=== PATIENT | female | born 1970 | race Caucasian/White ===

== ENCOUNTER → 2020-04-26 11:16 | Outpatient (CLI) | payer BC, SELFPAY ==
[2020-04-27 11:13] LABS: Covid-19 Nasal PCR Sendout P&C NEGATIVE
== END ==
PROVIDERS: PCP Family Medicine; Visit Provider Nurse Practitioner Family
DX: Z20.822 Contact with and (suspected) exposure to COVID-19 (principal)
CPT/HCPCS: U0004

== ENCOUNTER 2022-09-26 11:36 | Emergency (ER) | payer BC, SELFPAY ==
[2022-09-26 11:40] VITALS: BP 119/86; PULSE 78; RESP 18; TEMP 36.7; O2SAT 99; BMI 32.8
--- NOTE | 2022-09-26 12:00 | EXP.UTC ---
Discharge Plan Disposition Patient Disposition: Home, Self-Care Condition: Good Prescriptions Prescriptions: New fluticasone propionate [Flonase Allergy Relief] 50 mcg/actuation spray,suspension 2 spray intranasal DAILY Qty: 16 0RF Rx Instructions: administer into each nostril daily methylprednisolone [Medrol (Paulo)] 4 mg tablets,dose pack See Rx Instructions .Route .COMPLEX 6 Days Qty: 21 0RF Rx Instructions: taper pack; No Action levothyroxine 125 mcg tablet 125 mcg PO DAILY 90 Days Qty: 90 Label Comments: Referrals Follow up/Referrals: Patricia May APRN [Primary Care Provider] - See instructions Activity Restrictions/Add. Instructions Additional Instructions/Restrictions: *Monitor Temp, Over the counter Motrin or Tylenol as directed/as needed Tylenol every 4 hours and Motrin every 6 hours (as long as your family doctor has told you that you can take it) for fever or pain. and straight to ER if unable to lower temp less than 101.0 after medication given Take medication as prescribed *Humidifier/Vaporizer *Flonase 2 sprays in each nostril daily but be aware that it may take 2-3 days before you notice improvement Follow up IMMEDIATELY for new or worsening symptoms or no Noticeable improvement over the next 48-72 hours. 911 for difficulty breathing or swallowing Clinical Impressions Clinical Impression: Allergic rhinitis Qualifiers: Allergic rhinitis trigger: unspecified Allergic rhinitis seasonality: unspecified Qualified Code(s): J30.9 - Allergic rhinitis, unspecified Instructions Patient Instructions: Allergic Rhinitis, DI for Allergic Rhinitis Discharge ED Provider: Johanne Burkett [facility] [place] General Stated complaint: right ear pain Mode of Arrival: Ambulatory Source of Information: Patient Limitations: No Limitations Time Seen by Provider: 09/26/22 12:00 Description of Symptoms (Recalled from Triage Doc. by RN): PATIENT STATES THAT HER RIGHT EAR FEELS CLOGGED SINCE THIS MORNING HEENT Symptoms (Recalled from RN notes): Yes Resp Symptoms (Recalled from RN notes): No Skin Symptoms (Recalled from RN notes): No MS Symptoms (Recalled from RN notes): No Functional Status (Recalled from RN notes): WNL History of Present Illness Provider Complaint: Patient states that she has been having alot of allergy issues States that she woke up this morning feeling like her right ear is stopped up States that it feels full not sure if it may have fluid in there or blocked with wax Related Data Home Medications Medication Instructions Recorded Confirmed levothyroxine 125 mcg tablet 125 mcg PO DAILY Supplement 90 06/16/17 09/26/22 days ##90 Previous Rx's Medication Instructions Recorded fluticasone propionate 50 2 spray intranasal DAILY #16 grams 09/26/22 mcg/actuation nasal spray,suspension (Flonase Allergy Relief) methylprednisolone 4 mg tablets in See Rx Instructions .Route 09/26/22 a dose pack (Medrol (Paulo)) .COMPLEX 6 days #21 tabs Allergies Allergy/AdvReac Type Severity Reaction Status Date / Time No Known Allergies Allergy Verified 09/19/17 11:32 Worker's Comp Is this a Worker's Comp case?: No [facility] Disclaimer: The information contained in this section may have been updated after the patient was seen, as this information can be updated by other users. Medical History (Updated 09/26/22 @ 12:07 by Johanne Burkett APRN) Kidney stones Thyroid disease Social History Smoking Status: Never smoker alcohol intake: never current occupational status: employed Travel in the last 8 weeks: None ROS Obtained: Yes All systems reviewed & no additional complaints except as documented and Yes Systems reviewed as appropriate & no additional complaints except as documented Constitutional Constitutional: Reports system reviewed and no additional complaints, except as documented, Reports as per HPI and Denies fever(s) ENT Ears, Nose, M
[2022-09-26 12:11] VITALS: BP 119/86; PULSE 78; RESP 18; TEMP 36.7; O2SAT 99
== END 2022-09-26 12:14 | disposition home or self-care (01) ==
PROVIDERS: Emergency Provider Nurse Practitioner; PCP Nurse Practitioner Family
DX: J30.9 Allergic rhinitis, unspecified (principal); E03.9 Hypothyroidism, unspecified
CPT/HCPCS: 99204; 99212; G0463

== ENCOUNTER → 2022-10-03 15:40 | Outpatient (CLI) | payer BC, SELFPAY ==
[2022-10-03 16:43] LABS: Free T4 (Free Thyroxine) 1.64 ng/dl (0.78-2.19)
[2022-10-05 07:09] LABS: Triiodothyronine (T3) Total 66 ng/dL (71-180)
== END ==
PROVIDERS: PCP Nurse Practitioner Family; Visit Provider Nurse Practitioner Family
DX: E03.9 Hypothyroidism, unspecified (principal)
CPT/HCPCS: 84439; 84443; 84480

== ENCOUNTER 2023-09-02 09:09 | Emergency (ER) | payer BC, SELFPAY ==
[2023-09-02 09:25] VITALS: BP 171/106; PULSE 98; RESP 21; TEMP 36.8; O2SAT 98; BMI 31.7
--- NOTE | 2023-09-02 09:34 | EXP.UTC ---
Discharge Plan Disposition Patient Disposition: Home, Self-Care Condition: Good Prescriptions Prescriptions: New levofloxacin 750 mg tablet 750 mg PO Q24H Qty: 10 0RF ofloxacin 0.3 % drops 10 drp otic (ear) DAILY 7 Days Qty: 10 0RF No Action levothyroxine 137 mcg tablet 137 mcg PO DAILY Referrals Follow up/Referrals: Provider,Referral, [Primary Care Provider] - See instructions Shanna Huang APRN [Nurse Practitioner] - See instructions (Call office for appointment ) Activity Restrictions/Add. Instructions Additional Instructions/Restrictions: Take medication as prescribed If you start having any joint pain especially in the back of your heels stop the Levaquin and follow up immediately Return if needed Straight to ER if any life threatening symptoms Clinical Impressions Clinical Impression: Acute perichondritis of left pinna Instructions Patient Instructions: Levofloxacin, DI for Cellulitis -- Adult Discharge ED Provider: Johanne Burkett [facility] [place] HPI General Stated complaint: congestion, ear pain, runny nose, sore throat Mode of Arrival: Ambulatory Source of Information: Patient Limitations: No Limitations Time Seen by Provider: 09/02/23 09:36 Description of Symptoms (Recalled from Triage Doc. by RN): PATIENT C/O SINUS DRAINAGE AND SORE THROAT X 4 DAYS AND LEFT EAR PAIN THAT STARTED YESTERDAY HEENT Symptoms (Recalled from RN notes): Yes Resp Symptoms (Recalled from RN notes): No Skin Symptoms (Recalled from RN notes): No MS Symptoms (Recalled from RN notes): No Functional Status (Recalled from RN notes): WNL History of Present Illness Provider Complaint: Patient states that she has been having sinus pain and pressure, pain in her left ear, sore throat, and over all not feeling well for about 4 days that has not improved states that her left ear is sore and tender to the touch state today she was still not feeling any better so she came in to get checked Related Data Home Medications Medication Instructions Recorded Confirmed levothyroxine 137 mcg tablet 137 mcg PO DAILY 09/02/23 09/02/23 Previous Rx's Medication Instructions Recorded levofloxacin 750 mg tablet 750 mg PO Q24H #10 tabs 09/02/23 ofloxacin 0.3 % ear drops 10 drp otic (ear) DAILY 7 days #10 09/02/23 mL Allergies Allergy/AdvReac Type Severity Reaction Status Date / Time No Known Allergies Allergy Verified 09/19/17 11:32 Worker's Comp Is this a Worker's Comp case?: No [facility] Disclaimer: The information contained in this section may have been updated after the patient was seen, as this information can be updated by other users. Medical History (Updated 09/02/23 @ 10:05 by Johanne Burkett APRN) Thyroid disease Kidney stones Social History (Updated 09/26/22 @ 12:07 by Johanne Burkett APRN) Smoking Status: Never smoker alcohol intake: never current occupational status: employed Travel in the last 8 weeks: None ROS Obtained: Yes All systems reviewed & no additional complaints except as documented and Yes Systems reviewed as appropriate & no additional complaints except as documented Constitutional Constitutional: Reports system reviewed and no additional complaints, except as documented and Reports as per HPI ENT Ears, Nose, Mouth, and Throat: Reports system reviewed and no additional complaints, except as documented, Reports as per HPI, Reports otalgia, Reports sinus pain, Reports sinus pressure and Reports sore throat Cardiovascular Cardiovascular: Reports system reviewed and no additional complaints, except as documented and Reports as per HPI Respiratory Respiratory: Reports system reviewed and no additional complaints, except as documented and Reports as per HPI Gastrointestinal Gastrointestingal: Reports system reviewed and no additional complaints, except as documented and as per HPI Physical Exam General General appearance: alert and in no apparent distress ENT ENT exam: Present mucous membranes moist Expanded ENT Exam External ear exam: Present pain with movement (left), external tenderness (left) and other (mild redness noted) TM/Canal exam: Left TM: erythema Nose exam: Present sinus tenderness Throat exam: Present other (Pharyngeal erythema noted with PND) Respiratory Respiratory exam: Present normal lung sounds bilaterally; Absent respiratory distress or wheezes Cardiovascular Cardiovascular exam: Present regular rate, normal rhythm and normal heart sounds Neurological Exam Neurological exam: Present alert, oriented X3 and normal gait Medical Decision Making Karthik Inquiry Pt receiving controlled substance: No Karthik was queried for this patient: No Vital Signs: 09/02/23 09:25 Temperature 98.2 F Temperature Source Oral Pulse Rate [Left Brachial] 98 H Respiratory Rate 21 Blood Pressure [Left Arm] 171/106 H Blood Pressure Mean [Left Arm] 127 Blood Pressure Source [Left Arm] Automatic Cuff Blood Pressure Position [Left Arm] Sitting 02 Sat by Pulse Oximetry 98 Oxygen Delivery Method Room Air Medical Decision Narrative: spoke with ENT due to concern for pinna perichondritis due to redness and swelling of outside of left ear advsised to place on levaquin 750mg daily for 10 days and have her follow up in the ENT office in 2 weeks
[2023-09-02 09:41] VITALS: BP 170/104; PULSE 98; RESP 21; TEMP 36.8; O2SAT 98
== END 2023-09-02 10:07 | disposition home or self-care (01) ==
PROVIDERS: Emergency Provider Nurse Practitioner
DX: H61.012 Acute perichondritis of left external ear (principal); R07.0 Pain in throat; R09.81 Nasal congestion
CPT/HCPCS: 99212; 99214; G0463

== ENCOUNTER 2023-09-13 08:54 | Emergency (ER) | payer BC, SELFPAY ==
[2023-09-13 09:00] VITALS: BP 148/96; PULSE 80; RESP 21; TEMP 36.5; O2SAT 99; BMI 32.3
--- NOTE | 2023-09-13 09:17 | EXP.UTC ---
Discharge Plan Disposition Patient Disposition: Home, Self-Care Condition: Good Prescriptions Prescriptions: New amoxicillin 500 mg tablet 500 mg PO BID 10 Days Qty: 20 0RF prednisone 20 mg tablet 20 mg PO BID Qty: 10 0RF No Action levothyroxine 137 mcg tablet 137 mcg PO DAILY Referrals Follow up/Referrals: Jacinta Millan APRN [Primary Care Provider] - See instructions Activity Restrictions/Add. Instructions Additional Instructions/Restrictions: Start antibiotic as soon as possible and be sure to take as ordered for full length of time even though he should start feeling better in 24-48 hours. Tylenol or Motrin as needed for pain or fever Encourage fluids, water, Gatorade, Powerade, Pedialyte if infant/toddler/child Warm compresses often helps when placed over ear Return immediately for new or worsening symptoms no noticeable improvement in 48-72 hours and in 10-14 days to ensure the ears are return to baseline. Follow-up with primary care Clinical Impressions Clinical Impression: Otitis media, Otitis externa Instructions Patient Instructions: DI for Otitis Media (Middle Ear Infection)-Child, DI for Otitis Externa Discharge ED Provider: Solo ([facility] [place] HPI General Stated complaint: ear pain Mode of Arrival: Ambulatory Source of Information: Patient Limitations: No Limitations Time Seen by Provider: 09/13/23 09:17 Description of Symptoms (Recalled from Triage Doc. by RN): PATIENT C/O SWELLING, REDNESS, PAIN AND TENDERNESS TO LEFT EAR THAT STARTED 08/31. SHE HAS BEEN ON ANTIBIOTICS FOR IT BUT WITHOUT IMPROVEMENT HEENT Symptoms (Recalled from RN notes): Yes Resp Symptoms (Recalled from RN notes): No Skin Symptoms (Recalled from RN notes): No MS Symptoms (Recalled from RN notes): No Functional Status (Recalled from RN notes): WNL History of Present Illness Provider Complaint: 53 YR OLD FEMALE PRESENTS FOR C/O SWELLING, REDNESS, PAIN AND TENDERNESS TO LEFT EAR THAT STARTED 08/31. SHE HAS BEEN ON ANTIBIOTICS FOR IT BUT WITHOUT IMPROVEMENT Related Data Home Medications Medication Instructions Recorded Confirmed levothyroxine 137 mcg tablet 137 mcg PO DAILY 09/02/23 09/13/23 Previous Rx's Medication Instructions Recorded amoxicillin 500 mg tablet 500 mg PO BID 10 days #20 tabs 09/13/23 prednisone 20 mg tablet 20 mg PO BID #10 tabs 09/13/23 Allergies Allergy/AdvReac Type Severity Reaction Status Date / Time No Known Allergies Allergy Verified 09/19/17 11:32 Worker's Comp Is this a Worker's Comp case?: No [facility] Disclaimer: The information contained in this section may have been updated after the patient was seen, as this information can be updated by other users. Medical History , [employer]) Thyroid disease Kidney stones Social History , [employer]) Smoking Status: Never smoker alcohol intake: never current occupational status: employed Travel in the last 8 weeks: None ROS Obtained: Yes All systems reviewed & no additional complaints except as documented Constitutional Constitutional: Reports system reviewed and no additional complaints, except as documented Eyes Eyes: Reports system reviewed and no additional complaints, except as documented ENT Ears, Nose, Mouth, and Throat: Reports system reviewed and no additional complaints, except as documented, Reports as per HPI and Reports otalgia Cardiovascular Cardiovascular: Reports system reviewed and no additional complaints, except as documented Respiratory Respiratory: Reports system reviewed and no additional complaints, except as documented Gastrointestinal Gastrointestingal: Reports system reviewed and no additional complaints, except as documented Genitourinary Female Genitourinary: Reports system reviewed and no additional complaints, except as documented Musculoskeletal Musculoskeletal: Reports system reviewed and no additional complaints, except as documented Integumentary/Breasts Skin/Breast: Reports system reviewed and no additional complaints, except as documented Neurologic Neurologic: Reports system reviewed and no additional complaints, except as documented Endocrine Endocrine: Reports system reviewed and no additional complaints, except as documented Hematologic/Lymphatic Henatologic/Lymphatic: Reports system reviewed and no additional complaints, except as documented Allergic/Immunologic Allergic/Immunologic: Reports system reviewed and no additional complaints, except as documented Physical Exam General General appearance: alert and in no apparent distress Head Head exam: atraumatic Eye Eye exam: Present normal appearance ENT ENT exam: Present mucous membranes moist Expanded ENT Exam External ear exam: Present pain with movement and external tenderness TM/Canal exam: Left TM: erythema, loss of landmarks, canal discharge and canal tenderness (SWOLLEN CANAL-SMALL OPENING) Respiratory Respiratory exam: Present normal lung sounds bilaterally Cardiovascular Cardiovascular exam: Present regular rate and normal rhythm Neurological Exam Neurological exam: Present alert and oriented X3 Lymphatic Lymphatic Findings: no adenopathy Medical Decision Making Medical Records Medical records reviewed: Yes I reviewed the patient's medical records. Karthik Inquiry Pt receiving controlled substance: No Karthik was queried for this patient: No Vital Signs: 09/13/23 09:00 Temperature 97.7 F Temperature Source Oral Pulse Rate [Left Brachial] 80 Respiratory Rate 21 Blood Pressure [Left Arm] 148/96 H Blood Pressure Mean [Left Arm] 113 Blood Pressure Source [Left Arm] Automatic Cuff Blood Pressure Position [Left Arm] Sitting 02 Sat by Pulse Oximetry 99 Oxygen Delivery Method Room Air
[2023-09-13] MEDS: DEXAMETHASONE 4MG/ML 1ML VIAL 4 MG IM (09:27)
[2023-09-13 09:31] VITALS: BP 148/96; PULSE 80; RESP 21; TEMP 36.5; O2SAT 99
== END 2023-09-13 09:36 | disposition home or self-care (01) ==
PROVIDERS: Emergency Provider Nurse Practitioner Family; PCP Nurse Practitioner
DX: H66.92 Otitis media, unspecified, left ear (principal); H60.92 Unspecified otitis externa, left ear; H92.02 Otalgia, left ear
CPT/HCPCS: 96372; 99212; 99214; G0463; J1100